=== PATIENT | female | born 1995 | race Caucasian/White ===

== ENCOUNTER 2019-01-06 17:02 | Emergency (ER) | payer OTHER, SELFPAY ==
[2019-01-06 17:18] VITALS: BP 104/66; PULSE 100; RESP 18; TEMP 36.4; O2SAT 100; BMI 25.4
[2019-01-06 18:35] LABS: Appearance Urine UA SL CLOUDY; Bilirubin Urine UA NEGATIVE (NEGATIVE); Color Urine UA RED; Glucose Urine UA NEGATIVE (Negative); Ketones Urine UA NEGATIVE (NEGATIVE); Leukocyte Esterase Urine UA 1+ (NEGATIVE); Nitrite Urine UA NEGATIVE (Negative); Occult Blood Urine UA 3+ (Negative); Protein Urine UA 2+ (Negative); Urobilinogen Urine UA 0.2 E.U./dL (0.2)
[2019-01-06 18:46] LABS: Bacteria Urine Occasional (0-1); Culture Indicated Urine Specimen Cultured; RBC Urine >100/HPF (0-5/HPF); Squamous Epithelial Cell Urine 1-5 /HPF (0-5/HPF); WBC Urine 10-30/HPF (0-5/HPF)
--- NOTE | 2019-01-06 19:44 | ED_ITS ---
HPI - URI/Sore Throat General Chief Complaint: Upper Respiratory Symptoms Stated Complaint: UTI SORE THROAT Time Seen by Provider: 01/06/19 19:44 Source: patient Mode of arrival: Ambulatory Limitations: no limitations History of Present Illness HPI Narrative: The patient complains of sore throat for for 3 days. She has lower abdominal cramping and dysuria for 1 day. She was diagnosed and treated for strep throat about 1 month ago. She has a history of recurrent strep. She is a nonsmoker. She has no allergies. She is currently on her menstrual cycle, with onset of dysuria. There is no vaginal itching or discharge. Her menstrual cycles are generally regular. She is not prone to recurrent UTIs. She denies fever, chills or flank pain. She is on no prescription medications, she has no chronic medical problems. Related Data Previous Rx's Medication Instructions Recorded amoxicillin-pot clavulanate 1 tab PO BID #14 tab 01/06/19 [Augmentin] Allergies Allergy/AdvReac Type Severity Reaction Status Date / Time No Known Drug Allergies Allergy Verified 01/06/19 17:23 Review of Systems Constitutional Constitutional: Denies chills, Denies fever(s), Denies lethargy and Denies weakness Eyes Eyes: Denies change in vision and Denies eye discharge ENT Ears, Nose, Mouth, and Throat: Denies change in voice, Denies otalgia, Denies nasal discharge, Denies neck pain, Denies sinus pain and Reports sore throat Cardiovascular Cardiovascular: Denies chest pain, Denies irregular heart rhythm, Denies lightheadedness, Denies palpitations, Denies dyspnea, Denies dyspnea on exertion and Denies orthopnea Respiratory Respiratory: Denies cough, Denies dyspnea, Denies dyspnea on exertion and Denies wheezing Gastrointestinal Gastrointestinal: Reports abdominal pain (Lower abdominal discomfort.), Denies change in bowel habits, Denies diarrhea, Denies nausea and Denies vomiting Genitourinary Genitourinary: Reports dysuria, Denies pelvic pain, Denies urinary urgency and Denies vaginal discharge Musculoskeletal Musculoskeletal: Denies back pain and Denies neck pain Neurologic Neurologic: Denies weakness Endocrine Endocrine: Denies palpitations Allergic/Immunologic Allergic/Immunologic: Denies wheezing Patient History Medical History Strep throat (Acute) Surgical History (Updated 01/06/19 @ 20:04 by Cecil Castillo MD) No significant past surgical history (Acute) Social History Smoking Status: Never smoker alcohol intake frequency: a few times a month Substance Use Type: does not use Exam Initial Vital Signs Initial Vital Signs: Vital Signs Temperature 97.6 F 01/06/19 17:18 Pulse Rate 100 H 01/06/19 17:18 Respiratory Rate 18 01/06/19 17:18 Blood Pressure 104/66 01/06/19 17:18 Pulse Oximetry 100 01/06/19 17:18 Const General: cooperative and well developed Nutritional Appearance: well nourished Orientation: alert, awake and oriented x3 HENMT Head: normocephalic and atraumatic Ears: external ears normal and TM's normal bilaterally Nose: external nose normal and No nasal discharge Face and sinus: sinuses nontender and face symmetric Mouth: lip normal and moist mucous membranes Throat: uvula midline and abnormal tonsil (Bilateral tonsillar hypertrophy, no exudate) Eyes Conjunctivae: conjunctivae normal Neck Neck: normal visual inspection, trachea midline and No lymphadenopathy Lymphatic: No lymphedema Resp Effort & Inspection: normal respiratory effort and able to speak in complete sentences Auscultation: clear to auscultation bilaterally, no rales, no rhonchi and no wheezes Cardio Rate: regular rate Rhythm: regular rhythm Heart Sounds: no click, no gallops, no murmurs and no rubs Pulses: normal peripheral pulses GI Inspection: non-distended Palpation: soft, no hepatosplenomegaly, No guarding and No tender Auscultation: normal bowel sounds Back/Spine/Pelvis Back: No CVA tenderness Skin General: no rashes or lesions noted and No jaundice Extrem General: full ROM, no clubbing, cyanosis or edema and no pedal edema Psych Appearance: well kempt Mental Status: mental status grossly normal Attitude: cooperative Thought Content: normal and suicidality Judgment: judgment good Course Course Course Narrative: The patient has positive strep test is likely a false positive due to her history of recurrent strep throat. She has symptoms consistent with UTI, the hematuria likely reflects her menstrual cycle. She will be started on Augmentin to cover both pharyngitis as well as cystitis. Orders Ordered: ED Orders 01/06/19 18:32 Test Urine Stat Urinalysis and Microscopic Stat Urine Culture Stat Discontinued Medications Amoxicillin/Clavulanate Potassium (Augmentin 875-125 Mg) 1 tab PO NOW ONE Stop: 01/06/19 19:53 Last Admin: 01/06/19 19:59 Dose: 1 tab Documented by: KESHAWN Vital Signs Vital signs: Vital Signs - 8 hr 01/06/19 17:18 Temperature 97.6 F Pulse Rate 100 H Respiratory Rate 18 Blood Pressure 104/66 Pulse Oximetry 100 MDM - URI/Sore Throat Lab Data Labs: Lab Results 01/06/19 01/06/19 Range/Units 18:32 18:32 Urine Color Red Urine Appearance Sl cloudy Urine pH 8.0 (4.5-8.0) Ur Specific [place] 1.010 (1.000-1.035) Urine Protein 2+ H (Negative) Urine Glucose (UA) Negative (Negative) g/dL Urine Ketones Negative (NEGATIVE) Urine Occult Blood 3+ H (Negative) Urine Nitrate Negative (Negative) Urine Bilirubin Negative (NEGATIVE) Urine Urobilinogen 0.2 (0.2) E.U./dL Ur Leukocyte Esterase 1+ H (NEGATIVE) Urine RBC >100/hpf H (0-5/HPF) Urine WBC 10-30/hpf H (0-5/HPF) Ur Squamous Epith Cells 1-5 /hpf (0-5/HPF) Urine Bacteria Occasional (0-1) (None) Ur Culture Indicated? Specimen cultured Urine Test Negative (Negative) Point of Care Testing Rapid Strep A Positive Discharge Plan Departure Patient Disposition: Home Clinical Impression: Strep throat Urinary tract infection Qualifiers: Urinary tract infection type: acute cystitis Hematuria presence: with hematuria Qualified Code(s): N30.01 - Acute cystitis with hematuria Instructions: DI for Strep Throat, DI for Urinary Tract Infection (UTI) Activity Restrictions/Additional Instructions: Augmentin 2 times daily as prescribed. Drink plenty of fluids. Take Tylenol as needed for sore throat or abdominal pain. I would recommend following with her doctor, I would suggest an ENT consultation to evaluate your tonsils. Return here as needed. Prescriptions: New amoxicillin-pot clavulanate [Augmentin] 875-125 mg tablet 1 tab PO BID Qty: 14 RF: 0
[2019-01-06] MEDS: AMOXICILLIN/CLAV 875/125 MG 1 TAB PO (19:59)
[2019-01-06 20:21] LABS: Pregnancy Test Urine Negative (Negative)
[2019-01-06 20:33] VITALS: BP 91/55; PULSE 75; RESP 14; TEMP 36.4; O2SAT 99
== END 2019-01-06 20:34 | disposition home or self-care (01) ==
PROVIDERS: Emergency Provider Emergency Medicine
DX: J02.0 Streptococcal pharyngitis (principal); N30.01 Acute cystitis with hematuria
CPT/HCPCS: 81001; 81025; 87077; 87086; 87147; 87880; 99283